=== PATIENT | male | born 1965 | race Caucasian/White ===

== ENCOUNTER 2022-06-04 00:02 | Emergency (ER) | payer BC, SELFPAY ==
[2022-06-04 00:05] VITALS: BP 128/79; PULSE 65; RESP 18; TEMP 36.9; O2SAT 98; BMI 25.7
--- NOTE | 2022-06-04 00:06 | XRR_ITS ---
PROCEDURE INFORMATION: Exam: XR Chest Exam date and time: 06/04/2022 12:14 AM Age: 57 years old Clinical indication: Pain; Chest pressure; Additional info: Cp TECHNIQUE: Imaging protocol: Radiologic exam of the chest. Views: 1 view. COMPARISON: No relevant prior studies available. FINDINGS: Lungs: There is no evidence of focal pulmonary consolidation. Pleural spaces: No pleural effusion or pneumothorax. Heart/Mediastinum: The heart and mediastinum are normal in size. Bones/joints: Unremarkable. XR/XR chest 1V portable [id number] IMPRESSION: No acute findings.
--- NOTE | 2022-06-04 00:08 | ECG_ITS ---
[facility] Test Date: 2022-06-04 Pat Name: Errol Cole Department: Room: Gender: Male Sports Athletic Trainer: : 1965 Requested By: Handy Starks Order Number: [id number] Weston MD: Elisha Hunter M.D. Measurements Intervals [place] Rate: 64 P: 7 CO: 135 QRS: 36 QRSD: 96 T: 23 QT: 401 QTc: 414 Interpretive Statements SINUS RHYTHM No previous ECG available for comparison Electronically Signed On 06-04-2022 9:15:14 E [employer] DEVEL[employer] by Elisha Hunter M.D. [id number]
--- NOTE | 2022-06-04 00:11 | ED_ITS ---
HPI - Chest Pain General: Chief Complaint: Chest Pain Stated Complaint: Cp, SOB Time Seen by Provider: 06/04/22 00:06 Source: patient Mode of arrival: ambulatory Limitations: no limitations History of Present Illness: 57-year-old male states he started having some pain in his chest roughly 2 hours ago he states he had a history of reflux states his pain felt little different denies any radiation of pain he had no diaphoresis did have some slight nausea denies any shortness of breath he states his pain is since resolved he took aspirin at home no history of heart disease does have a history of diabetes. Associated symptoms: Deny abdominal pain, dyspnea, fever(s), nausea or vomiting Review of Systems Const: Denies: fever(s), chills, body aches or change in appetite Eyes: Denies: blurry vision or eye discomfort ENMT: Denies: throat pain or dental pain Card: Reports: chest pain Resp: Denies: dyspnea GI: Denies: abdominal pain, nausea, vomiting or diarrhea : Denies: dysuria Musc: Denies: neck pain or back pain Skin/Breast: Denies: rash Neuro: Denies: headache(s) Psych: Denies: depression César/Lymph: Denies: easy bruising All/Imm: Denies: urticaria PFSH ED PFSH: Medical History (Updated 06/04/22 @ 02:04 by Handy Starks MD) Diabetes Social History (Updated 06/04/22 @ 00:12 by Hadny Starks MD) Substance/Drug Use: never Physical Exam Const: COMMON NORMALS: no acute distress, patient oriented x3 and healthy appearing HENMT: COMMON NORMALS: normocephalic and atraumatic HEAD & SCALP: normocephalic and atraumatic Eye: COMMON NORMALS: Equal, round and reactive pupils present and EOMs intact bilaterally PUPIL: Yes Equal, round and reactive pupils present Neck/C-Spine: COMMON NORMALS: full ROM and supple Chest: COMMONS NORMALS: normal inspection of the chest and normal palpation of entire chest wall Resp: COMMON NORMALS: normal respiratory effort, No retractions, No use of accessory muscles and clear to auscultation bilaterally AUSCULTATION: clear to auscultation bilaterally Cardio: COMMON NORMALS: regular rate, regular rhythm and No murmurs present (Cardio) RATE: regular rate RHYTHM: regular rhythm GI: COMMON NORMALS: Normal to inspection, nondistended, normoactive bowel sounds present, Soft to palpation, non-tender and no masses PALPATION: Yes Soft to palpation Extremity: COMMON NORMALS: normal to inspection and full ROM Neuro: COMMON NORMALS: patient oriented x3, moves all extremities and no focal motor deficits Psych: COMMON NORMALS: mental status grossly normal, Normal thought process present and cooperative THOUGHT PROCESS: Normal thought process present Skin: COMMON NORMALS: no rashes or lesions noted and no wounds GENERAL SKIN EXAM: no rashes or lesions noted Course Vital Signs: Vital signs: Vital Signs Temperature 98.5 F 06/04/22 00:05 Pulse Rate 65 06/04/22 00:05 Respiratory Rate 18 06/04/22 00:05 Blood Pressure 128/79 06/04/22 00:05 Pulse Oximetry 98 06/04/22 00:05 MDM - Chest Pain Medical Decision Making Patient presents here with chest pain that is since resolved his initial repeat troponin here negative patient is stable for discharge at this time he is to follow-up with PCP and return if worsening he understands agrees to plan. Lab Data 06/04/22 00:15 06/04/22 00:15 Radiology Impressions Chest X-Ray 06/04/22 00:06 IMPRESSION: No acute findings. Laboratory Results WBC 12.1 10^3/uL (4.0-10.0) H 06/04/22 00:15 RBC 5.13 10^6/uL (4.1-5.3) 06/04/22 00:15 Hgb 15.9 g/dL (11.7-16.6) 06/04/22 00:15 Hct 46.2 % (42.0-52.0) 06/04/22 00:15 MCV 90.1 fl (80-94) 06/04/22 00:15 MCH 31.0 pg (28.0-34.0) 06/04/22 00:15 MCHC 34.4 g/dL (30.0-36.0) 06/04/22 00:15 RDW 13.2 % (12.1-15.1) 06/04/22 00:15 Plt Count 264 10^3/cmm (130-400) 06/04/22 00:15 MPV 9.5 fL (7.4-10.4) 06/04/22 00:15 Neut % (Auto) 68.4 % 06/04/22 00:15 Lymph % (Auto) 19.5 % 06/04/22 00:15 Dickens % (Auto) 8.7 % 06/04/22 00:15 Eos % (Auto) 2.6 % 06/04/22 00:15 Baso % (Auto) 0.5 % 06/04/22 00:15 Neut # (Auto) 8.30 10^3/uL (1.8-7.7) H 06/04/22 00:15 Lymph # (Auto) 2.4 10^3/uL (0.8-4.8) 06/04/22 00:15 Dickens # (Auto) 1.1 10^3/uL (0.2-0.9) H 06/04/22 00:15 Eos # (Auto) 0.3 10^3/uL (0.0-0.8) 06/04/22 00:15 Baso # (Auto) 0.1 10^3/uL (0.0-0.1) 06/04/22 00:15 Nucleated RBC % (auto) 0 % 06/04/22 00:15 Nucleated RBCs # 0.0 /100WBC 06/04/22 00:15 PT 13.00 SECONDS (12.1-14.9) 06/04/22 00:15 INR 0.95 (0.8-1.2) 06/04/22 00:15 Sodium 137 mmol/L (136-145) 06/04/22 00:15 Potassium 3.9 mmol/L (3.5-5.1) 06/04/22 00:15 Chloride 99 mmol/L (98-107) 06/04/22 00:15 Carbon Dioxide 26 mmol/L (22-29) 06/04/22 00:15 Anion Gap 15.9 (5-19) 06/04/22 00:15 BUN 23 mg/dL (6-20) H 06/04/22 00:15 Creatinine 0.6 mg/dL (0.7-1.2) L 06/04/22 00:15 GFR Calculation 137.9 mL/min (90-130) H 06/04/22 00:15 Glucose 102 mg/dL (65-115) 06/04/22 00:15 Calculated Osmolality 288 mOsm/kg (285-295) 06/04/22 00:15 Calcium 8.9 mg/dL (8.5-10.5) 06/04/22 00:15 Total Bilirubin 0.5 mg/dL (0.15-1.2) 06/04/22 00:15 AST 29 U/L (0-40) 06/04/22 00:15 ALT 36 U/L (0-41) 06/04/22 00:15 Alkaline Phosphatase 62 U/L (40-130) 06/04/22 00:15 Troponin T Baseline 10 ng/L (0-15) 06/04/22 00:15 Troponin T 120 Minute 9.16 ng/L (0-15) 06/04/22 01:28 NT-Pro-B Natriuret Pep 14 pg/mL (0-125) 06/04/22 00:15 Total Protein 7.1 g/dL (6.6-8.7) 06/04/22 00:15 Albumin 4.7 g/dL (3.5-5.2) 06/04/22 00:15 Globulin 2.4 g/dL (1.3-4.6) 06/04/22 00:15 EKG Data EKG 1: I personally reviewed and interpreted this EKG as follows: EKG interpretation date: 06/04/22 EKG interpretation time: 00:08 Interpretation: nsr hr [address] or t wave abnormalities qrs 96 qtc 410 Discharge Plan Discharge Patient Disposition: Home Clinical Impression: Chest pain Discharge Orders: Discharge ED (Routine); Ordered 06/04/22 Ordered By: Handy Starks Discharge Diet: Advance as tolerated Discharge Activity: Resume usual activity Patient Instructions: Chest Pain (ED) Coding Level of Care Code ED Surgical Instrument Technician for Chg Fwd Exam Comprehensive
[2022-06-04 00:22] LABS: Basophils # 0.1 10^3/uL (0.0-0.1); Basophils % 0.5 %; Eosinophils # 0.3 10^3/uL (0.0-0.8); Eosinophils % 2.6 %; Hematocrit 46.2 % (42.0-52.0); Hemoglobin 15.9 g/dL (11.7-16.6); Lymphocytes # 2.4 10^3/uL (0.8-4.8); Lymphocytes % 19.5 %; Mean Corpuscular HGB Conc 34.4 g/dL (30.0-36.0); Mean Corpuscular Volume 90.1 fl (80-94); Mean Platelet Volume 9.5 fL (7.4-10.4); Monocytes # 1.1 10^3/uL (0.2-0.9); Monocytes % 8.7 %; Neutrophils % 68.4 %; Nucleated Red Blood Cells % 0 %; Platelet Count 264 10^3/cmm (130-400); Red Blood Count 5.13 10^6/uL (4.1-5.3); Red Cell Distribution Width 13.2 % (12.1-15.1); White Blood Count 12.1 10^3/uL (4.0-10.0)
[2022-06-04 00:36] LABS: INR 0.95 (0.8-1.2)
[2022-06-04 00:45] LABS: Troponin(5th) Baseline 10 ng/L (0-15)
[2022-06-04 00:54] LABS: Alanine Aminotransferase 36 U/L (0-41); Albumin Level 4.7 g/dL (3.5-5.2); Alkaline Phosphatase 62 U/L (40-130); Anion Gap 15.9 (5-19); Aspartate Amino Transferase 29 U/L (0-40); Blood Urea Nitrogen 23 mg/dL (6-20); Calcium 8.9 mg/dL (8.5-10.5); Carbon Dioxide 26 mmol/L (22-29); Chloride 99 mmol/L (98-107); Globulin 2.4 g/dL (1.3-4.6); Glomerular Filtration Rate 137.9 mL/min (90-130); Glucose 102 mg/dL (65-115); NT Pro B Type Natriuretic Pept 14 pg/mL (0-125); Osmolality Calculated 288 mOsm/kg (285-295); Potassium 3.9 mmol/L (3.5-5.1); Sodium 137 mmol/L (136-145); Total Bilirubin 0.5 mg/dL (0.15-1.2); Total Protein 7.1 g/dL (6.6-8.7)
[2022-06-04 02:01] LABS: Troponin 5 2HR 9.16 ng/L (0-15)
--- NOTE | 2022-06-04 02:06 | ECG_ITS ---
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 Measurements Intervals [place] Rate: 61 P: 31 OK: 149 QRS: 29 QRSD: 97 T: 12 QT: 405 QTc: 410 Interpretive Statements SINUS RHYTHM Compared to ECG 06/04/2022 00:08:47 No significant changes Electronically Signed On 06-04-2022 9:18:48 SUPERVISOR [employer] by Elisha Hunter M.D. [id number]
[2022-06-04 02:14] LABS: Troponin 5 2HR Delta -0.84 ABS# (0-10)
== END 2022-06-04 02:17 | disposition home or self-care (01) ==
PROVIDERS: Emergency Provider Emergency Medicine
DX: R07.9 Chest pain, unspecified (principal); E11.9 Type 2 diabetes mellitus without complications
CPT/HCPCS: 71045; 80053; 83880; 84484; 85025; 85610; 93005; 99285